=== PATIENT | male | born 1950 | race Caucasian/White ===

== ENCOUNTER 2016-12-04 14:29 | Inpatient (IN) ==
--- NOTE | 2016-12-04 14:57 | ED.PDOC ---
General ED Provider: Dr. BHASKAR DOW Chief Complaint: Extremity Swelling/Pain Stated Complaint: pedal edema bilateral Time Seen by Physician: 14:45 (scrotal edema today lower leg edema chronic worse today) Mode of Arrival: Walk-In Information Source: Patient Exam Limitations: No limitations [facility] T[facility] Documentation Reviewed and Agree: Yes (history of panceratic cancer ) Review of Systems - Review Of Systems Constitutional: Reports: Malaise Eyes: Reports: No symptoms Ears, Nose, Mouth, Throat: Reports: No symptoms Respiratory: Reports: No symptoms Cardiac: Reports: No symptoms GI: Reports: Abdominal pain : Reports: No symptoms Musculoskeletal: Reports: Other (bilater leg edema) Skin: Reports: No symptoms Neurological: Reports: No symptoms Endocrine: Reports: No symptoms Hematologic/Lymphatic: Reports: No symptoms All Other Systems: Reviewed and Negative Past Medical History - Past Medical History Previously Healthy: No Endocrine: Reports: DM 2, Dyslipidemia Cardiovascular: Reports: CAD, Hypertension Respiratory: Reports: COPD Hematological: Reports: Anemia Gastrointestinal: Reports: GERD Genitourinary: Reports: None Neuro/Psych: Reports: Anxiety, Depression Musculoskeletal: Reports: Arthritis Cancer: Reports: None - Surgical History General Surgical History: Reports: Back Surgery - Family History Family History: Reports: None - Social History Smoking Status: Former smoker Hx Substance Use: No Alcohol Screening: None Physical Exam - Physical Exam Appearance: Ill-appearing Ill-appearing: Severe Pain Distress: Severe Eyes: NADIR, EOMI, Conjunctiva clear ENT: Ears normal, Nose normal, Oropharynx normal Respiratory: Airway patent, Breath sounds clear, Breath sounds equal, Respirations nonlabored Cardiovascular: RRR, Pulses normal, No rub, No murmur GI/: Nontender (SCROTAL EDEMA ) Musculoskeletal: Normal strength, ROM intact, No edema, No calf tenderness Skin: Warm, Dry, Normal color Neurological: Sensation intact, Motor intact, Reflexes intact, Cranial nerves intact, Alert, Oriented Psychiatric: Affect appropriate, Mood appropriate Critical Care Note - Critical Care Note Total Time (mins): 0 Course - Course Hematology/Chemistry: 12/04/16 15:05 12/04/16 15:05 Orders, Labs, Meds: Lab Review 12/04/16 12/04/16 14:54 15:05 WBC 7.42 RBC 3.19 L Hgb 10.1 L Hct 31.6 L MCV 99.1 H MCH 31.7 H MCHC 32.0 RDW Coeff of Leandro 17.2 H Plt Count 212 Immature Gran % (Auto) 0.1 Neut % (Auto) 59.4 Lymph % (Auto) 33.2 [place] % (Auto) 6.1 Eos % (Auto) 0.7 Baso % (Auto) 0.5 Immature Gran # (Auto) 0.0 Neut # 4.4 Lymph # 2.5 [place] # 0.5 Eos # 0.1 Baso # 0.0 D-Dimer 0.58 Puncture Site r rad O2 Saturation 100.0 ABG pH 7.62 H* ABG pCO2 23.0 L ABG pO2 132.0 H ABG HCO3 24 ABG Total CO2 25 ABG Base Excess 3 H Reilly Test + FiO2 % 21.0 Sodium 146 H Potassium 4.1 Chloride 113 H Carbon Dioxide 24 Anion Gap 13.1 BUN 30 H Creatinine 0.95 Estimated GFR (MDRD) 79.00 BUN/Creatinine Ratio 31.57 Glucose 76 L Lactic Acid 14.8 Calcium 6.9 L Total Bilirubin 0.41 AST 45 H ALT 51 Alkaline Phosphatase 162 H Total Creatine Kinase 80 Troponin I < 0.0100 B-Natriuretic Peptide 55 Total Protein 3.8 L Albumin 1.5 L Globulin 2.3 Albumin/Globulin Ratio 0.65 Orders Category Date Time Status ABG DRAW REQUEST Stat CARDIO 12/04/16 14:54 Completed ABG Stat LAB 12/04/16 14:54 Completed B-TYPE NATRIURETIC PEPTIDE Stat LAB 12/04/16 15:05 Completed BLOOD CULTURE Stat LAB 12/04/16 15:05 Received CBC W/ AUTO DIFF Stat LAB 12/04/16 15:05 Completed COMPREHENSIVE METABOLIC PANEL Stat LAB 12/04/16 15:05 Completed CREATINE KINASE Stat LAB 12/04/16 15:05 Completed D-DIMER Stat LAB 12/04/16 15:05 Completed LACTIC ACID Stat LAB 12/04/16 15:05 Completed TROPONIN I Stat LAB 12/04/16 15:05 Completed URINALYSIS C & S IF INDICATED Stat LAB 12/04/16 14:[address] ABDOMEN/PELVIS WO CONTRAST Stat RADS 12/04/16 14:[address] CHEST W/O CONTRAST Stat RADS 12/04/16 14:52 Completed ULTRASOUND SCROTUM [U/S SCROTUM] Stat RADS 12/04/16 14:55 Completed Vital Signs: Temp Pulse Resp BP Pulse Ox 12/04/16 14:30 97.2 F L 79 20 103/71 93 L Departure - Departure Time of Disposition: 16:20 (PT REFUSED TRANSFER [facility]YE AT BEDSIDE PT AOX3 REQUESTED TO BE ADMITTED TO [facility]) Disposition: ADMITTED INPATIENT Discharge Problem: Edema of lower extremity, Bilateral lower extremity edema, Edema of scrotum Instructions: Leg Edema (ED) Condition: Good Pt referred to PMD for follow-up: No Allergies/Adverse Reactions: Allergies Penicillins Adverse Reaction (Verified 12/04/16 14:35) CANT BREATHE strawberry [Lorain] Adverse Reaction (Verified 12/04/16 14:35) Rash Home Medications: Ambulatory Orders Nitroglycerin [Nitrostat] 0.4 mg SL Q5MIN X 3 DOSES PRN 05/25/13 Pregabalin [Lyrica] 150 mg PO TID 05/01/16 Multivits,Th W-Fe,Other Min [Thera-M] 1 each PO DAILY 09/19/16 Oxycodone HCl 10 mg PO Q4HR PRN 09/19/16 Tizanidine HCl 4 mg PO TID PRN 09/19/16 Atorvastatin Calcium [Lipitor] 20 mg PO BEDTIME 12/04/16 Furosemide [Lasix Tab] 40 mg PO QDAC 12/04/16 Lipase/Protease/Amylase [Zenpep Dr 20,000 Units Capsule] 1 each PO TID 12/04/16 Morphine Sulfate [Morphine Sulfate Tab] 60 mg PO BID 12/04/16 Disposition Discussed With: Patient
[2016-12-04 15:11] LABS: BASOPHILS % (AUTO) 0.5 % (0.0-3.0); EOSINOPHILS # (AUTO) 0.1 K/ul (0.0-0.7); EOSINOPHILS % (AUTO) 0.7 % (0.0-7.0); HEMATOCRIT 31.6 % (42.0-52.0); HEMOGLOBIN 10.1 g/dl (14.0-18.0); IMMATURE GRANULOCYTE % (AUTO) 0.1 % (0.0-5.0); LYMPHOCYTES # (AUTO) 2.5 K/uL (0.60-3.4); LYMPHOCYTES % (AUTO) 33.2 (10.0-50.0); MEAN CORPUSCULAR HEMOGLOBIN 31.7 pg (27.0-31.0); MEAN CORPUSCULAR VOLUME 99.1 fl (80.0-94.0); MONOCYTES # (AUTO) 0.5 K/uL (0.4-2.0); MONOCYTES % (AUTO) 6.1 (0-10); NEUTROPHILS # (AUTO) 4.4 K/ul (2.0-6.9); NEUTROPHILS % (AUTO) 59.4; PLATELET COUNT 212 10^3/uL (140-440); RED BLOOD COUNT 3.19 10^6/ul (4.70-6.10); WHITE BLOOD COUNT 7.42 K/ul (4.2-10.2)
[2016-12-04 15:35] LABS: ALANINE AMINOTRANSFERASE 51 U/L (12-78); ALBUMIN 1.5 g/dL (3.4-5.0); ALBUMIN/GLOBULIN RATIO 0.65; ALKALINE PHOSPHATASE 162 U/L (56-119); ANION GAP 13.1; ASPARTATE AMINO TRANSFERASE 45 U/L (15-37); BILIRUBIN,TOTAL 0.41 mg/dL (0.00-1.20); BLOOD UREA NITROGEN 30 mg/dL (7-18); BUN/CREATININE RATIO 31.57; CALCIUM 6.9 mg/dL (8.2-10.2); CARBON DIOXIDE 24 mmol/L (23-31); CHLORIDE 113 mmol/L (98-107); CREATINE KINASE 80 U/L; CREATININE 0.95 mg/dL (0.60-1.10); GLUCOSE 76 mg/dL (82-115); POTASSIUM 4.1 mmol/L (3.5-5.1); SODIUM 146 mmol/L (136-145); TOTAL PROTEIN 3.8 g/dL (5.8-8.1)
--- NOTE | 2016-12-04 15:46 | CT ---
EXAM: CT of the chest, abdomen and pelvis without contrast. History: Cough and abdominal pain. Comparison: CT abdomen pelvis 07/18/2016 Technique: Multiplanar CT images through the chest, abdomen pelvis were obtained without the admini stration of IV contrast Findings: Difficult evaluation without contrast administration. Ectatic ascending aorta again note d. Coronary calcifications. Intraventricular septum is visible suggesting anemia. Heart size is n ormal. No pericardial effusion. No pathologically enlarged thoracic lymph nodes. Calcified granul omas again seen within the thorax. Emphysema. Biapical scarring again noted. Trace left pleural ef fusion but improved compared to the prior study. No evidence for pneumonia. Postsurgical changes again seen within the abdomen. Pneumobilia again noted. No focal splenic or l iver lesions. Atherosclerotic vascular calcifications. No peripancreatic inflammation. Adrenal gl ands are unremarkable. Punctate 1 mm nonobstructing right renal calculi. No hydronephrosis. Scatt ered colonic stool. No bowel obstruction. No free air. Bladder is low lying within the pelvis but there is no bladder wall thickening. No free air. No ascites. Prostatic calcifications. No heather rectal inflammation. There is body wall edema. No acute osseous abnormalities. Moderate degenerat karl disc disease at L5-S1. Impression: 1. No acute intrathoracic process. 2. Emphysema. 3. Old granulomatous disease. 4. No acute intra-abdominal or pelvic process. 5. Generalized body wall edema. 6. Pneumobilia again noted. 7. Coronary artery disease. 8. Probable anemia.
[2016-12-04 15:51] LABS: ABG BASE EXCESS 3 (-2.0-2.0); ABG HCO3 24 (22.0-26.0); ABG PH 7.62 (7.35-7.45); ABG TCO2 25 (22.0-28.0)
--- NOTE | 2016-12-04 16:02 | US ---
EXAM: Scrotal ultrasound. History: Testicular and scrotal swelling. Technique: Multiple sonographic images through the scrotum were obtained. Color duplex Doppler was used to interrogate vascular flow. Findings: The right testicle measures 3.9 cm x 1.7 cm x 2.4 cm. Blood flow is documented within the right michael ticle. No right intratesticular masses are identified. The right epididymis is not hyperemic. The left testicle measures 3.2 cm x 2.0 cm x 2.5 cm. Blood flow is documented within the left testi jose cruz. No left intratesticular masses are identified. The left epididymis is not hyperemic. No significant hydroceles and no varicoceles identified. Severe diffuse scrotal edema and skin thic kening. Impression: Severe diffuse scrotal edema and skin thickening. No other significant findings.
[2016-12-04] MEDS ORDERED: ONDANSETRON HCL 4 MG PO PRN (16:26)
[2016-12-04] MEDS ORDERED: LASIX IVP STA (16:26)
[2016-12-04] MEDS ORDERED: NITROSTAT SL PRN (16:26)
[2016-12-04] MEDS ORDERED: PROAIR HFA IH PRN (16:26)
[2016-12-04] MEDS ORDERED: ZOFRAN TAB PO PRN (16:51)
[2016-12-04] MEDS: SODIUM CHLORIDE 500 ML IV SCH ×2 (16:58→21:07)
[2016-12-04 17:45] VITALS: BMI 16.9
[2016-12-04 19:22] LABS: ADD URINE MICROSCOPIC NO; BILIRUBIN,URINE Negative (NEGATIVE); KETONES,URINE Negative (NEGATIVE); LEUKOCYTE ESTERASE ,URINE Negative (NEGATIVE); NITRITE,URINE Negative (NEGATIVE); PH,URINE 5.5 (5-9); PROTEIN,URINE Negative (NEGATIVE); URINE, BLOOD Negative (NEGATIVE)
[2016-12-04] MEDS: KEPPRA PO SCH (20:59)
[2016-12-04] MEDS: LIPITOR PO SCH (20:59)
[2016-12-04] MEDS: LIPASE PO SCH (21:00)
[2016-12-04] MEDS: PROTEASE PO SCH (21:00)
[2016-12-04] MEDS: AMYLASE PO SCH (21:00)
[2016-12-04] MEDS: [UNRECOGNIZED DRUG - OTHER] PO SCH (21:00)
[2016-12-04] MEDS ORDERED: MORPHINE SULFATE TAB ONE (21:04)
[2016-12-04] MEDS: MORPHINE SULFATE TAB PO SCH (21:05)
[2016-12-04 23:20] LABS: CREATINE KINASE 116 U/L
[2016-12-04 23:23] LABS: CREATINE KINASE MB 2.7 ng/ml (0.0-3.6)
[2016-12-05] MEDS: SODIUM CHLORIDE 500 ML IV SCH ×5 (04:02→22:26)
[2016-12-05] MEDS: LASIX TAB PO SCH (05:47)
[2016-12-05 07:19] LABS: BASOPHILS % (AUTO) 0.6 % (0.0-3.0); EOSINOPHILS % (AUTO) 0.8 % (0.0-7.0); HEMATOCRIT 31.5 % (42.0-52.0); IMMATURE GRANULOCYTE % (AUTO) 0.2 % (0.0-5.0); LYMPHOCYTES % (AUTO) 39.2 (10.0-50.0); MEAN CORPUSCULAR HEMOGLOBIN 31.7 pg (27.0-31.0); MEAN CORPUSCULAR HGB CONC 31.7 (31.8-35.4); MONOCYTES # (AUTO) 0.3 K/uL (0.4-2.0); MONOCYTES % (AUTO) 6.3 (0-10); NEUTROPHILS # (AUTO) 2.7 K/ul (2.0-6.9); NEUTROPHILS % (AUTO) 52.9; PLATELET COUNT 205 10^3/uL (140-440); RED BLOOD COUNT 3.15 10^6/ul (4.70-6.10)
[2016-12-05 07:52] LABS: ALANINE AMINOTRANSFERASE 48 U/L (12-78); ALBUMIN 1.4 g/dL (3.4-5.0); ALBUMIN/GLOBULIN RATIO 0.61; ALKALINE PHOSPHATASE 154 U/L (56-119); ANION GAP 4.9; ASPARTATE AMINO TRANSFERASE 43 U/L (15-37); BILIRUBIN,TOTAL 0.32 mg/dL (0.00-1.20); BLOOD UREA NITROGEN 28 mg/dL (7-18); BUN/CREATININE RATIO 37.83; CALCIUM 6.8 mg/dL (8.2-10.2); CARBON DIOXIDE 30 mmol/L (23-31); CHLORIDE 113 mmol/L (98-107); CREATINE KINASE 110 U/L; CREATININE 0.74 mg/dL (0.60-1.10); GLUCOSE 93 mg/dL (82-115); POTASSIUM 3.9 mmol/L (3.5-5.1); SODIUM 144 mmol/L (136-145); TOTAL PROTEIN 3.7 g/dL (5.8-8.1)
[2016-12-05] MEDS ORDERED: NON-FORMULARY MEDICATION (Rivaroxaban [Xarelto] 20 MG) PO SCH (09:00)
[2016-12-05] MEDS: KEPPRA PO SCH ×2 (09:22→20:52)
[2016-12-05] MEDS: XARELTO PO SCH (09:22)
[2016-12-05] MEDS: AMYLASE PO SCH ×3 (09:23→20:53)
[2016-12-05] MEDS: PROTEASE PO SCH ×3 (09:23→20:53)
[2016-12-05] MEDS: [UNRECOGNIZED DRUG - OTHER] PO SCH ×3 (09:23→20:53)
[2016-12-05] MEDS: LIPASE PO SCH ×3 (09:23→20:53)
[2016-12-05] MEDS ORDERED: MORPHINE SULFATE 60 MG PO SCH (10:00)
[2016-12-05] MEDS: MORPHINE SULFATE TAB PO SCH (10:07)
[2016-12-05] MEDS: MS CONTIN PO SCH ×2 (10:23→20:52)
[2016-12-05] MEDS: LIPITOR PO SCH (20:52)
[2016-12-06] MEDS: SODIUM CHLORIDE 500 ML IV SCH ×2 (03:01→12:38)
[2016-12-06] MEDS: LASIX TAB PO SCH (05:45)
[2016-12-06 07:00] LABS: BASOPHILS % (AUTO) 0.4 % (0.0-3.0); EOSINOPHILS % (AUTO) 0.7 % (0.0-7.0); HEMATOCRIT 35.7 % (42.0-52.0); HEMOGLOBIN 11.3 g/dl (14.0-18.0); IMMATURE GRANULOCYTE % (AUTO) 0.2 % (0.0-5.0); LYMPHOCYTES % (AUTO) 35.8 (10.0-50.0); MEAN CORPUSCULAR HEMOGLOBIN 31.7 pg (27.0-31.0); MEAN CORPUSCULAR HGB CONC 31.7 (31.8-35.4); MEAN CORPUSCULAR VOLUME 100.3 fl (80.0-94.0); MONOCYTES # (AUTO) 0.3 K/uL (0.4-2.0); NEUTROPHILS # (AUTO) 3.2 K/ul (2.0-6.9); NEUTROPHILS % (AUTO) 56.9; PLATELET COUNT 228 10^3/uL (140-440); RED BLOOD COUNT 3.56 10^6/ul (4.70-6.10); WHITE BLOOD COUNT 5.65 K/ul (4.2-10.2)
[2016-12-06 07:21] LABS: ALBUMIN 1.4 g/dL (3.4-5.0); ALBUMIN/GLOBULIN RATIO 0.56; ANION GAP 6.7; BILIRUBIN,TOTAL 0.34 mg/dL (0.00-1.20); BUN/CREATININE RATIO 28.76; CREATININE 0.73 mg/dL (0.60-1.10); POTASSIUM 4.7 mmol/L (3.5-5.1); TOTAL PROTEIN 3.9 g/dL (5.8-8.1)
[2016-12-06] MEDS: KEPPRA PO SCH ×2 (08:04→20:48)
[2016-12-06] MEDS: XARELTO PO SCH (08:04)
[2016-12-06] MEDS: MS CONTIN PO SCH (11:38)
[2016-12-06] MEDS: [UNRECOGNIZED DRUG - OTHER] PO SCH ×3 (11:58→20:48)
[2016-12-06] MEDS: AMYLASE PO SCH ×3 (11:58→20:48)
[2016-12-06] MEDS: LIPASE PO SCH ×3 (11:58→20:48)
[2016-12-06] MEDS: PROTEASE PO SCH ×3 (11:58→20:48)
[2016-12-06] MEDS ORDERED: MS CONTIN PO SCH (17:28)
[2016-12-06] MEDS ORDERED: INFUVITE ADULT IV SCH (18:00)
[2016-12-06] MEDS ORDERED: SOD CHLORIDE 0.225% IV SCH (18:00)
[2016-12-06] MEDS ORDERED: DEXTROSE IV SCH (18:00)
[2016-12-06] MEDS ORDERED: INFUVITE ADULT IV ONE (20:34)
[2016-12-06] MEDS: LIPITOR PO SCH (20:47)
[2016-12-07 05:47] LABS: BASOPHILS % (AUTO) 0.7 % (0.0-3.0); EOSINOPHILS % (AUTO) 0.5 % (0.0-7.0); HEMATOCRIT 39.6 % (42.0-52.0); HEMOGLOBIN 12.4 g/dl (14.0-18.0); IMMATURE GRANULOCYTE % (AUTO) 0.4 % (0.0-5.0); LYMPHOCYTES # (AUTO) 1.7 K/uL (0.60-3.4); LYMPHOCYTES % (AUTO) 30.7 (10.0-50.0); MEAN CORPUSCULAR HEMOGLOBIN 31.2 pg (27.0-31.0); MEAN CORPUSCULAR HGB CONC 31.3 (31.8-35.4); MEAN CORPUSCULAR VOLUME 99.7 fl (80.0-94.0); MONOCYTES # (AUTO) 0.3 K/uL (0.4-2.0); MONOCYTES % (AUTO) 4.6 (0-10); NEUTROPHILS # (AUTO) 3.6 K/ul (2.0-6.9); NEUTROPHILS % (AUTO) 63.1; PLATELET COUNT 217 10^3/uL (140-440); RED BLOOD COUNT 3.97 10^6/ul (4.70-6.10); WHITE BLOOD COUNT 5.64 K/ul (4.2-10.2)
[2016-12-07] MEDS: LASIX TAB PO SCH (05:55)
[2016-12-07 06:13] LABS: ALBUMIN 1.5 g/dL (3.4-5.0); ALBUMIN/GLOBULIN RATIO 0.54; ANION GAP 6.4; BILIRUBIN,TOTAL 0.73 mg/dL (0.00-1.20); BUN/CREATININE RATIO 32.85; CALCIUM 7.1 mg/dL (8.2-10.2); CREATININE 0.7 mg/dL (0.60-1.10); POTASSIUM 4.4 mmol/L (3.5-5.1); TOTAL PROTEIN 4.3 g/dL (5.8-8.1)
[2016-12-07] MEDS ORDERED: CLINIMIX E 4.25%-5% SOLUTION 1,000 ML IV ONE (08:00)
[2016-12-07] MEDS: AMYLASE PO SCH ×2 (08:52→14:24)
[2016-12-07] MEDS: PROTEASE PO SCH ×2 (08:52→14:24)
[2016-12-07] MEDS: KEPPRA PO SCH (08:52)
[2016-12-07] MEDS: LIPASE PO SCH ×2 (08:52→14:24)
[2016-12-07] MEDS: [UNRECOGNIZED DRUG - OTHER] PO SCH ×2 (08:52→14:24)
[2016-12-07] MEDS: XARELTO PO SCH (08:53)
[2016-12-07] MEDS ORDERED: MS CONTIN PO SCH (09:00)
[2016-12-07] MEDS: SODIUM CHLORIDE 500 ML IV SCH (11:59)
--- NOTE | 2016-12-07 15:53 | US ---
EXAM: ULTRASOUND LOWER EXTREMITY VENOUS DOPPLER EXAM HISTORY: Leg edema. FINDDINGS: Bilateral lower extremity venous Doppler exam. Real time lawton-scale, Doppler spectral an alysis and color-flow Doppler imaging performed. The veins targeted for evaluation include the comm on femoral, greater saphenous, profundus, femoral, popliteal, peroneal, anterior tibial and posterio r tibial. The evaluated veins demonstrated normal spontaneous flow and compression without evidenc e of thrombosis. No valvular reflux. Diffuse subcutaneous edema. IMPRESSION: No venous thrombosis identified within the areas evaluated. There is diffuse subcutane ous edema.
[2016-12-07 17:55] VITALS: BP 150/94; TEMP 97.7
--- NOTE | 2016-12-12 08:23 | HP ---
CHIEF COMPLAINT: Bilateral lower extremity edema, as well as pelvis, plus pain of both lower extremities. HISTORY OF PRESENT ILLNESS: The patient has had bilateral leg edema for some time. He did complain of pain and the pain has persisted. The patient was examined and evaluated in the emergency room. The patient was subsequently admitted for evaluation because of the bilateral leg edema and pelvic, more so the scrotal. The studies down at the emergency room prior to admission consisted of CT of the chest, abdomen and pelvis and labs consisting of CBC, plus chemistry. CBC showed moderate anemia 10.1 grams hemoglobin, total protein 3.8, albumin 1.5, calcium 6.9, E GFR 79. Mild hyperchloremia. Arterial blood gases abnormal with pH 7.62, PO2 132, PCO2 23, Oxygen saturation 100. FIO2 21. PAST PERSONAL HISTORY: Medical history: consisted of hypertension, diabetes mellitus, seizure disorder, myocardial infarction, COPD, chronic tobacco use, history of renal failure probably acute, depression, anxiety, osteoarthritis, chronic pancreatitis and DVT. Surgical history: Cholecystectomy, injury to the lumbar and cervical spine from an accident in 1988 while in [place] with surgery of the lumbar spine, as well as cervical. The patient had some confusion, probably related to the pain medication. The patient had been managed by Pain Management, Dr. Mason. Receiving Morphine from him. FAMILY HISTORY: Sister had malignancy, plus cardiac disease. Father had heart disease with CVA and at age 51. Mother had cardiac disease, as well as diabetes mellitus and the mother at age 72. SOCIAL HISTORY: The patient is a . Previously worked at [employer] at the [employer]. He stopped smoking about 8 months ago. He denied any alcohol use. HOME MEDICATIONS: Prior to this admission: Nitroglycerin 0.4 mg tablet prn, use every 5 minutes times three doses and if the chest pain has not resolved to go to the emergency room. Lyrica 150 mg three times a day Multivitamin one daily Tizanidine 4 mg three times a day prn Zofran 4 mg every 6 hours prn ProAir Hfa one to two puffs every 4 to 6 hours prn Keppra 500 mg twice a day Xarelto 20 mg daily Protonix 40 mg daily Lasix 40 mg daily Zenpep 20,000 IU three times a day Lipitor 20 mg daily Morphine sulfate 30 mg twice a day Oxycodone/APAP 10/325 mg one tablet every 4 hours prn ALLERGIES: Penicillin and strawberry. REVIEW OF SYSTEMS: CONSTITUTIONAL: No fever and no chills with fatigue. BAG BUILDER: History of seizure disorder. No recent seizure activity. No syncopal episodes. VISUAL: Denies any double vision or loss of vision. AUDITORY: The patient is able to hear. Denies any ringing of the ears or pain. RESPIRATORY: Denies any cough that is disturbing, no hemoptysis, some hyperventilation. CARDIOVASCULAR: The patient has history of myocardial infarction. Denies any chest pain at this time. GASTROINTESTINAL: The patient does complain of abdominal pain, pain in legs, as well as back. This patient is taking Morphine from Pain Management 30 mg twice a day for the back pain, as well as the cervical pain. The patient has some diarrhea. He has no problems swallowing food. The sister claimed that he has a good appetite and eats more than her , but the patient is not eating much while in the hospital. GENITOURINARY: The patient is somewhat incontinent of urine. He denies any burning on urination. MUSCULOSKELETAL: The patient has chronic lumbar pain on chronic narcotic medication, as well as cervical. The patient now complaining of pain in both legs. ENDOCRINE: The patient had history of pancreatic carcinoma, as well as diabetes mellitus. HEMATOLOGIC: The patient has moderate anemia, but no history of prolonged bleeding. PSYCHIATRIC: The patient has a history of depression, as well as anxiety. The patient does answer verbal questioning and appears to be tired. PHYSICAL EXAMINATION: GENERAL: The patient is alert and did walk to the emergency room. He does answer verbal stimulus. He appears to be ill. VITAL SIGNS: Temperature 97.2, pulse 79, blood pressure 103/71, respiratory rate 20, oxygen saturation 93 at room air. The arterial blood gases in the emergency room, however, showed a markedly abnormal blood gases, respiratory alkalosis maybe. He weighs 119 pounds and 14.4 ounces. He used to measure 5'10 ". General appearance is that of a man that is ill and dehydrated. Skin is dry and some wrinkled. Skin turgor is very poor. FACE: Symmetrical and equal with no facial weakness. No remarkable tenderness in the frontal in or maxillary sinus areas to palpation under pressure. EYES: Pupils equal/reactive to light. Conjunctivae not pale. Sclerae not icteric. MOUTH: Unremarkable. THROAT: No inflammation, tumors or exudate. NECK: No masses. No adenopathy. No bruit. CHEST: Essentially symmetrical and equal, somewhat kyphotic. The ribs are prominent. No tenderness to palpation in the chest wall. LUNGS: Breath sounds are heard in both sides, diminished with no obvious rales and no wheezing. HEART: Audible and regular with good tones. No murmurs. ABDOMEN: Flat, soft. Scar from the previous surgery, Whipple's procedure done in [facility]. No ventral or incisional hernias noted. EXTERNAL GENITALIA: The scrotal sac is markedly edematous in both sides. There is no tumors and no inflammation or redness. LOWER EXTREMITIES: Edematous entire lower extremity beginning with the thigh down to the foot. Pedal pulses are not palpable, probably because of the edema. The anterior tibial pulses were previous palpable four months ago. UPPER EXTREMITIES: Essentially symmetrical and equal with some edema. NOTE: This patient, according to the POAMl, had not been taking his medications. The Pain Medication is locked by the POA and she gives the medication to him. ASSESSMENT: 1. SEVERE HYPOPROTEINEMIA AND HYPOALBUMINEMIA 2. ANASARCA, SECONDARY TO #1 3. PANCREATIC CARCINOMA, STATUS POST WHIPPLE'S PROCEDURE MARCH 2016 4. DVT LOWER EXTREMITY JULY 2016 5. CHRONIC OBSTRUCTIVE PULMONARY DISEASE BY HISTORY 6. CHRONIC TOBACCO USE AND ABUSE STOPPED 8 MONTHS AGO 7. HISTORY OF SEIZURE DISORDER 8. HISTORY OF HYPERTENSION 9. HISTORY OF DIABETES MELLITUS TYPE I 10. INTRAHEPATIC PNEUMOBILIA SECONDARY TO WHIPPLE'S PROCEDURE 11. ANEMIA, MODERATE 12. ELEVATED ALKALINE PHOSPHATASE, SOURCE UNDETERMINED. PROGNOSIS: Poor. MTDD
--- NOTE | 2016-12-12 10:57 | DS ---
PATIENT TRANSFERRED TO [place], [place] PATIENT IDENTIFICATION: 66 year old male was admitted to the hospital because of extensive edema involving both lower extremities and the area of pelvis and scrotum. He also complained of pain in both lower extremities. HOSPITAL COURSE: The appearance was of an ill individual, but responsive. LUNGS: Breath sounds are diminished in both sides, but no rales or wheezing. HEART: Normal sinus rhythm. ABDOMEN: No remarkable tenderness and no masses. There is some edema of the abdominal wall, scrotum and both lower extremities extending to the thigh and above. Work up consisted of CT scan of the chest, abdomen and pelvis showing no acute processes. Pneumobilia is again noted and was present on the previous admission. Scrotal ultrasound showed severe diffuse scrotal edema and skin thickening. No significant findings. Venous Doppler bilateral lower extremities with no venous thrombosis identified within the areas evaluated. There is diffuse subcutaneous edema. Serial CBC's showed normal WBC with moderate anemia. Hemoglobin ranging from 10.1 to 12.4. MCV and MCH were higher , above normal. RDW also elevated, 17.1 to 17.2. Arterial blood gases abnormal with pH of 7.62, PCO2 23, PO2 132, oxygen saturation 100, FIO2 21. Chemistries showed slight hyperchloremia, otherwise unremarkable electrolytes. CO2 normal. BUN elevated 30 on admission and decreased down to 21. E GFR normal ranging from 79 to 112. Blood sugar normal. Lactic Acid normal at 14.8. Alkaline Phosphatase elevated from 154 to 194 and was increasing while in the hospital. CK plus MB, plus Troponin normal. Total protein and Albumin low at 3.7 and 1.4 is the lowest. Urinalysis normal. Blood cultures were negative after three days. The patient's edema has decreased with the foot elevated, but still remarkable. I had discussed the need higher nutrition for this patient to improve his status and the POA wanted a PICC line and I told her that we do not insert a PICC line nor do hyperalimentation from this facility. She wanted him transferred, so I did proceed to discuss the case with the hospitalist at [facility] in [place]. He felt. Dr. Barber, that it would be best for him to go to [place] where he was operated and they can begin with the hyperalimentation and continue hyperalimentation on an outpatient basis. BHUPINDER was adamant about not having a PEG tube inserted for alimentation. I did advise the POA, Ml Alvares, about the advise from [facility] and not accepting his admission to that facility and also informed her that I tried to call Dr. Rojelio Corral's office and the office is now closed at 2:30 in the afternoon. She would like him to have a hyperalimentation and so I proceeded to talk with [facility] [place] and did get to talk to Akash Alvarenga, a mid-level, and accepted the patient for admission at that facility. The patient at 5:54 p.m. had the following vital signs: temperature 97.2, pulse 59, blood pressure 150/94, respiratory rate 14, oxygen saturation on room air 98. LUNGS: No rales, but diminished. HEART: Normal sinus rhythm. ABDOMEN: No remarkable tenderness. LOWER EXTREMITIES: There is still edematous ankles, including the scrotum. I informed the patient that he is going to be transferred to [place], [place]. [facility] is not able to transport him to [place], since they have ambulances that have been borrowed. [facility] also in [place], [place] is not able to transport somebody from out of town or out of state. The ambulance service [facility] also was contacted and they do not have the ability to transport this patient. I had a talk with the head of the [facility] and discussed the case. He told me that he will try to get in touch with other services and see if there is a way that he can be transported. I did tell him that we are trying to get an air-evac to [place] when the POA has consented. The POA had been contacted by [facility] and she consented with the transfer. After I have obtained transfer from [place], the POA was contacted with regards to the transfer to be done this evening and the POA told me that she is not able to go to [place], nor even to come to the hospital. They have two vehicles at home, but both of them are disabled at this time. This patient will be air-evac to [facility]. At the time of discharge, he was alert and responsive and follows verbal commands. The lungs are clear on both sides, but diminished. The heart is normal sinus rhythm. The abdomen with no remarkable tenderness. Both lower extremities still edematous. FINAL DIAGNOSES: 1. SEVERE MALNUTRITION, HYPOPROTEINEMIA AND HYPOALBUMINEMIA 2. ANASARCA SECONDARY TO #1 3. PANCREATIC CARCINOMA, POST WHIPPLE'S 4. DVT RIGHT LOWER EXTREMITY JULY 2016 5. CHRONIC LUMBAR AND CERVICAL PAIN MANAGED BY PAIN MANAGEMENT 6. HISTORY OF SEIZURE DISORDER 7. HISTORY OF ACUTE MYOCARDIAL INFARCTION 8. HISTORY OF CHRONIC OBSTRUCTIVE PULMONARY DISEASE 9. HISTORY OF DEPRESSION AND ANXIETY 10. HISTORY OF LUMBAR SURGERY 11. HISTORY OF CERVICAL DISC/SPINE SURGERY 12. HISTORY OF CHOLECYSTECTOMY 13. HISTORY OF DIABETES MELLITUS TYPE I PROGNOSIS: Poor. MTDD
--- NOTE | 2016-12-12 11:47 | PN ---
CONVERSATION NOTE WITH EDY RIDGE'S POA, MARY ALVARES. TODAY IS 12/06/16 AT 5:50 P.M. I asked the nurse to call Ms. Alvares so that I could discuss the directive. This patient is a full code and I did ask Ms. Alvares about the full code and she told me that that is their desire to have a full code and that his mother and father have the same and even did CPR on a relative that had an [facility] at home. I told her that I just wanted to know whether that is still the direction and she said, "Yes". I did tell her because of the pancreatic carcinoma that this patient had that was operated some time last March. She told me that she knows about the pseudocyst that about one-fourth of the people with pancreatic carcinoma survives in five years. She tries to tell me that she knows everything about pancreatic carcinoma and survival. I did not question what she said. I did tell her also that the edema is because of the severe hypoproteinemia and severe hypoalbuminemia. The patient is not absorbing the food or maybe not getting the food he is eating or does not have the appetite to eat. She asked me if I would put a PICC line and I said this hospital doesn' t do that and I told her that maybe a PEG tube and she said she would not have a PEG tube. She also told me that Mr. Farrell has an appointment December 11, 2016 with the operating surgeon in [place]. I asked the nurse to get the name of the doctor, as well as the phone number and I did tell Ms. Alvares that I would like to talk to him and see if he has any opinion in this regard. He needs hyperalimentation in order to increase his protein. That hyperalimentation may need to be for a longer length of time, not only just a week. Mr. Farrell, according to Mady Dia, had not been taking his other medications. The narcotic medications are controlled by her and she locks them up. When she reviewed the medications, she realized that he had not taken the other medications in the last four days. Home medications are Pregabalin, Tizanidine, Zofran, Keppra, Xarelto, Protonix, Lasix, Zenpep, Lipitor, Morphine 30 mg twice a day, Oxycodone 10/325 mg one every 4 hours prn. Mr. Farrell seemed to be confused more today and we will reduce the MS Contin to 20 mg every 12 hours and will increase that to 30 mg. Labs today showed slightly higher chloride, glucose is normal. AST and ALT normal. Alkaline phosphatase elevated probably due to the pancreatic carcinoma. Total protein low, as well as, Albumin 1.4 and 1.5. The patient will be given protein administered at 4.25 1,000 cc to run about 12 hours, as well as Dextrose 5% 1/4 saline, plus MVI at 12 hours per 1,000. PROGNOSIS: Poor. MTDD
--- NOTE | 2016-12-12 12:00 | PN ---
DATE OF VISIT: 12/07/16 The patient had just had a BM and had now full bowel movements according to the nurse. They were trying to clean him up. He was alert and responsive. I did examine him since they were still cleaning him and so I proceeded to call Dr. Rojelio Meng in [place], phone #[phone] and the office was closed at 2: 30 in the afternoon. It mentioned, however, that there office is open from 7: 30 to 4:30 Saturday through Saturday, but again the office is closed today or it is already closed according to the notice. So I proceeded with [facility] and talked to the nurse and then did talk to Dr. Barber, the hospitalist. I recited his history and the reason why he came to the hospital. He came because of edema of both legs and scrotum, as well as the lower abdominal wall. In the course of examination, the patient was found to have a markedly low albumin at 1.5, total protein 3.9. This patient is given peripheral Albumin and will be given also fat IV. I felt that this patient needs hyperalimentation either oral or through a PEG tube or transvenous. The family declines to have a PEG tube. Dr. Barber was asking me about the dietary plans for this patient who had a Whipple's procedure done at [place]. He did tell me that it is probably best for him to go back to [place] for prolonged nutrition planning to maintain his nutrition. He declines to admit him to [facility] at this time. He felt that he should go back to [place] for the PICC line and how long he would be carried on the hyperalimentation and also when to stop. I will try to get the transfer number to [facility] and see if can discuss the case and possibly transfer him to them. I will discuss this with the POA, Ms. Alvares. GLEN
--- NOTE | 2016-12-12 12:11 | PN ---
CONVERSATION NOTE WITH BHUPINDER WARREN FOR CALI FARRELL I called Cali Farrell's phone number and she answered. I called [phone] and that has been disconnected seemingly. I did talk to her about that and she told me that she had updated that phone with the nurse last night. It, however , had not been changed on the demographics. I did inform her that I did call Dr. Meng's office and it had been closed, although the advertising tells me that the office is open from 7:30 to 4:30 Saturday through Saturday. It seemed to have closed earlier today for what reason I do not know. I did also inform her that I proceeded to call the admitting center at [facility] and talked to Dr. Barber and Dr. Barber felt that it would be best for this patient to go back to [place] for the nutrition planning for this patient. Ms. Alvares told me that is because Mr. Cali Farrell had not been taking his medications as prescribed. She does tell me that Mr. Farrell has a very good appetite and eats more than her . I did advise her that I would try to get in touch with the admitting center at [place] to see if I could transfer him and she told me that she will also try to get in touch with Dr. Meng. I did give my phone number just in case Dr. Meng would call me to Ms. Alvares. I left the same number to Dr. Meng's office. She asked me how he is and I told her that he is about the same as when he was admitted. The swelling is less as the legs were elevated. The legs are still edematous at this time. That always had been also the complaint he had last July of 2016. During that time, the patient was found to have a DVT by Doppler studies. This patient is taking Xarelto. SAMMID
--- NOTE | 2016-12-12 13:07 | PN ---
12/07/16 at 4:35 p.m. I did call [facility] in [place]. Phone number [phone]. Again , I talked to Ashley Ghotra with the transfer center and I talked with nurse and gave all the vital signs, as well as the history for Mr. Farrell and why we are trying to transfer him there. The transfer center nurse told me that she has to touch base with the hospitalist, as well as the surgeon. I did also advise her that the patient has an appointment with Dr. Rojelio Meng on December 11, 2016 at 11:25 in the morning. I did give them my cellphone number and they did call me on the cellphone and I did talk to Akash Starks and he accepted the patient to [facility] and the patient will be transported to that facility from [place]. I did call Ml Dia with regards to the transfer. She told me that she is trying to get to the hospital, but they have problems with transportation. They have two vehicles and one of them is not working and the other one is questionable to travel to [place]. She told me that she is trying very hard to get to the hospital and possibly go to [place]. I told her that he will be transferred to [place] as soon as we can get arrangements for transportation. I did call the [place] nursing station and I did advise them that Ashley Ghotra is going to call them with regards to the bed an also the fact that they had accepted him as a patient. I talked to Chivo Turner and Nicol did call me back and told me that the [facility] will not be able to transport Mr. Farrell to [place]. I don't know the reason. I did tell her to see if Elana would be able to do that. GLEN
--- NOTE | 2016-12-12 13:12 | PN ---
DATE OF VISIT: 12/05/16 The patient is alert and appears ill and not any better. The swelling in the lower extremities has decreased somewhat because of the elevation of the lower extremities. His total protein and Albumin remain about the same, as well as the hemoglobin and hematocrit. He remained afebrile. The patient would need some hyperalimentation to increase the calorie intake. The patient's POA, however, mentioned that the patient does not take his medications as prescribed and regularly. At this time, the patient had not taken any of his usual medications, except for the pain medication in the last four days according to the POA, Ml Alvares. PROGNOSIS: Poor. MTDD
== END 2016-12-07 19:05 | disposition short-term general hospital (02) | DRG 641 ==
LOC: ED 14:29 → MEDSURG A 16:27
PROVIDERS: ADMIT General Practice; ATTEND General Practice
DX: E64.0 Sequelae of protein-calorie malnutrition (principal); E88.09 Other disorders of plasma-protein metabolism, not elsewhere classified; E77.8 Other disorders of glycoprotein metabolism; R60.0 Localized edema; N50.89 Other specified disorders of the male genital organs; R10.9 Unspecified abdominal pain; M79.605 Pain in left leg; M79.604 Pain in right leg; R41.0 Disorientation, unspecified; G89.29 Other chronic pain; M54.5 Low back pain; E10.9 Type 1 diabetes mellitus without complications; J44.9 Chronic obstructive pulmonary disease, unspecified; I25.2 Old myocardial infarction; Z85.07 Personal history of malignant neoplasm of pancreas; Z98.890 Other specified postprocedural states; Z79.899 Other long term (current) drug therapy; Z86.69 Personal history of other diseases of the nervous system and sense organs; Z87.891 Personal history of nicotine dependence; Z86.718 Personal history of other venous thrombosis and embolism; Z79.01 Long term (current) use of anticoagulants
CPT/HCPCS: 36415; 80053; 81001; 82550; 82553; 82803; 83605; 83880; 84484; 85025; 85379; 87040; 93005; 93010; 96374; 97802; 99223; 99232; 99239; 99284

== ENCOUNTER 2017-02-07 16:31 | Outpatient (CLI) | payer OTHER ==
[2013-05-27 06:22] VITALS: TEMP 97.8
== END 2017-02-07 16:32 | disposition home or self-care (01) ==
LOC: AMBL 16:31
PROVIDERS: ATTEND Emergency Medicine
DX: S31.21XA Laceration without foreign body of penis, initial encounter (principal)

== ENCOUNTER 2017-02-18 15:30 | Outpatient (CLI) ==
[2013-05-27 06:22] VITALS: TEMP 97.8
== END 2017-02-18 15:31 ==
LOC: AMBL 15:30
PROVIDERS: ATTEND Emergency Medicine